=== PATIENT | female | born 1935 | race Caucasian/White ===

== ENCOUNTER → 2016-11-13 | Outpatient (CLI) | payer MEDICARE ==
[2016-11-13 12:51] LABS: MEAN CORPUSCULAR HEMOGLOBIN 32.1 pg (27.0-33.0); MEAN CORPUSCULAR HGB CONC 33.3 g/dl (32.0-36.5); MEAN CORPUSCULAR VOLUME 96.3 fl (80.0-96.0); RED CELL DISTRIBUTION WIDTH 13.1 % (11.5-14.5)
[2016-11-13 13:41] LABS: ALBUMIN 3.1 GM/DL (3.2-5.2); ALBUMIN/GLOBULIN RATIO 0.91 (1.00-1.93); ALKALINE PHOSPHATASE 71 U/L (45-117); ALT/SGPT 13 U/L (12-78); ANION GAP 7 MEQ/L (8-16); AST/SGOT 11 U/L (15-37); BILIRUBIN,TOTAL 0.6 MG/DL (0.2-1.0); BLOOD UREA NITROGEN 13 MG/DL (7-18); CALCIUM LEVEL 9.1 MG/DL (8.8-10.2); CARBON DIOXIDE LEVEL 27 MEQ/L (21-32); CHLORIDE LEVEL 104 MEQ/L (98-107); CHOLESTEROL LEVEL 177 MG/DL (<200); CREATININE FOR GFR 0.72 MG/DL (0.55-1.02); GLOMERULAR FILTRATION RATE > 60.0 (>32); GLUCOSE, FASTING 165 MG/DL (83-110); POTASSIUM SERUM 4.7 MEQ/L (3.5-5.1); SODIUM LEVEL 138 MEQ/L (136-145); TOTAL PROTEIN 6.5 GM/DL (6.4-8.2); TRIGLYCERIDES LEVEL 69 MG/DL (<150)
== END ==
LOC: M WUC 08:58
PROVIDERS: ATTEND Family Medicine
DX: I10 Essential (primary) hypertension (principal)

== ENCOUNTER 2017-07-18 13:37 | Inpatient (IN) | payer MEDICARE ==
[2017-07-18 14:45] LABS: BASO % 0.1 % (0.0-1.0); EOS % 0.1 % (0.0-3.0); HEMATOCRIT 35.6 % (36.0-47.0); HEMOGLOBIN 11.8 g/dl (12.0-16.0); IMMATURE GRANULOCYTE % 0.8 % (0-3.0); LYMPH # 1.2 10^3/uL (1.5-4.5); LYMPH % 11.6 % (24.0-44.0); MEAN CORPUSCULAR HEMOGLOBIN 30.8 pg (27.0-33.0); MEAN CORPUSCULAR HGB CONC 33.1 g/dl (32.0-36.5); MONO # 0.7 10^3/uL (0.0-0.8); NEUTROPHILS % 80.4 % (36.0-66.0); PLATELET COUNT, AUTOMATED 300 10^3/uL (150-450); RED BLOOD COUNT 3.83 10^6/uL (4.00-5.40); RED CELL DISTRIBUTION WIDTH 12.7 % (11.5-14.5)
[2017-07-18 15:10] LABS: ANION GAP 9 MEQ/L (8-16); BLOOD UREA NITROGEN 22 MG/DL (7-18); CALCIUM LEVEL 8.1 MG/DL (8.8-10.2); CARBON DIOXIDE LEVEL 28 MEQ/L (21-32); CHLORIDE LEVEL 97 MEQ/L (98-107); CREATININE FOR GFR 0.84 MG/DL (0.55-1.30); GLOMERULAR FILTRATION RATE > 60.0 (>32); GLUCOSE, FASTING 381 MG/DL (70-100); NT-PRO BNP 17693 PG/ML (<450); POTASSIUM SERUM 4.8 MEQ/L (3.5-5.1); SODIUM LEVEL 134 MEQ/L (136-145)
[2017-07-18 15:20] LABS: INFLUENZA A AMPLIFICATION POSITIVE (NEGATIVE); INFLUENZA B AMPLIFICATION NEGATIVE (NEGATIVE)
[2017-07-18] MEDS: FUROSEMIDE 40 MG/4 ML VIAL (J1940) IV (16:30)
[2017-07-18] MEDS: NEOSPORIN OINT 0.9 GM PKT (FLOOR STOCK) TOP (16:45)
[2017-07-18] MEDS ORDERED: GLUCOSE 4 GM CHEW TABLET PO (17:30)
[2017-07-18] MEDS: HumaLOG INSULIN (NovoLOG) PER UNIT SC ×2 (17:30→21:00)
[2017-07-18] MEDS ORDERED: DEXTROSE 50% 50 ML SYRINGE IV (17:30)
[2017-07-18] MEDS ORDERED: GLUCAGON FOR INJ 1 MG VIAL (J1610) SC (17:30)
[2017-07-18 18:50] LABS: BEDSIDE GLUCOSE 336 MG/DL (83-110)
[2017-07-18 20:47] LABS: BEDSIDE GLUCOSE 225 MG/DL (83-110)
[2017-07-18 21:27] LABS: ESTIMATED AVERAGE GLUCOSE 212 MG/DL (60-110)
[2017-07-18 21:28] LABS: THYROID STIMULATING HORMONE 0.671 uIU/ML (0.358-3.740)
[2017-07-18] MEDS: HEPARIN SOD (PORCINE) 5000 UNITS/ML VIAL SC (21:59)
[2017-07-18] MEDS: METOPROLOL TART 25 MG TABLET PO (21:59)
[2017-07-18] MEDS: guaiFENesin 200 MG TAB PO (23:54)
[2017-07-19] MEDS ORDERED: SLF 3 ML SYR IV (01:30)
[2017-07-19 05:11] LABS: HEMATOCRIT 34.4 % (36.0-47.0); HEMOGLOBIN 11.5 g/dl (12.0-16.0); MEAN CORPUSCULAR HEMOGLOBIN 30.7 pg (27.0-33.0); MEAN CORPUSCULAR HGB CONC 33.4 g/dl (32.0-36.5); MEAN CORPUSCULAR VOLUME 91.7 fl (80.0-96.0); PLATELET COUNT, AUTOMATED 307 10^3/uL (150-450); RED BLOOD COUNT 3.75 10^6/uL (4.00-5.40); RED CELL DISTRIBUTION WIDTH 12.6 % (11.5-14.5); WHITE BLOOD COUNT 13.2 10^3/uL (4.0-10.0)
[2017-07-19 05:35] LABS: ANION GAP 11 MEQ/L (8-16); BLOOD UREA NITROGEN 20 MG/DL (7-18); CALCIUM LEVEL 8.3 MG/DL (8.8-10.2); CARBON DIOXIDE LEVEL 28 MEQ/L (21-32); CHLORIDE LEVEL 97 MEQ/L (98-107); CREATININE FOR GFR 0.58 MG/DL (0.55-1.30); GLOMERULAR FILTRATION RATE > 60.0 (>32); GLUCOSE, FASTING 167 MG/DL (70-100); MAGNESIUM LEVEL 1.7 MG/DL (1.8-2.4); POTASSIUM SERUM 4.1 MEQ/L (3.5-5.1); SODIUM LEVEL 136 MEQ/L (136-145)
[2017-07-19] MEDS: HEPARIN SOD (PORCINE) 5000 UNITS/ML VIAL SC ×3 (06:29→21:25)
[2017-07-19] MEDS: SLF 3 ML SYR IV ×3 (06:30→21:26)
[2017-07-19] MEDS: HumaLOG INSULIN (NovoLOG) PER UNIT SC ×4 (07:46→21:00)
[2017-07-19] MEDS: ATORVASTATIN 10 MG TAB PO (07:47)
[2017-07-19] MEDS: METOPROLOL TART 25 MG TABLET PO ×2 (07:49→21:25)
[2017-07-19] MEDS: LOSARTAN 50 MG TAB PO (07:49)
[2017-07-19] MEDS ORDERED: FUROSEMIDE 40 MG TAB PO (09:00)
[2017-07-19] MEDS ORDERED: POTASSIUM CHLORIDE 10 MEQ SR TABLET PO (09:00)
[2017-07-19] MEDS: MAG SULF 1GM/100ML (MAG RUN) 1 GM in APPROPRIATE DILUENT 1 EA IV (09:18)
[2017-07-19] MEDS: ASPIRIN 325 MG TAB PO (09:18)
[2017-07-19 11:52] LABS: BEDSIDE GLUCOSE 226 MG/DL (83-110)
[2017-07-19 17:02] LABS: BEDSIDE GLUCOSE 215 MG/DL (83-110)
[2017-07-19] MEDS: guaiFENesin 200 MG TAB PO (17:32)
[2017-07-19] MEDS: BENZONATATE 100 MG CAP PO (21:26)
[2017-07-19 21:44] LABS: BEDSIDE GLUCOSE 178 MG/DL (83-110)
[2017-07-20 06:03] LABS: HEMATOCRIT 34.5 % (36.0-47.0); HEMOGLOBIN 11.5 g/dl (12.0-16.0); MEAN CORPUSCULAR HEMOGLOBIN 30.8 pg (27.0-33.0); MEAN CORPUSCULAR HGB CONC 33.3 g/dl (32.0-36.5); MEAN CORPUSCULAR VOLUME 92.5 fl (80.0-96.0); PLATELET COUNT, AUTOMATED 331 10^3/uL (150-450); RED BLOOD COUNT 3.73 10^6/uL (4.00-5.40); RED CELL DISTRIBUTION WIDTH 12.6 % (11.5-14.5); WHITE BLOOD COUNT 13.3 10^3/uL (4.0-10.0)
[2017-07-20 06:16] LABS: ANION GAP 6 MEQ/L (8-16); BLOOD UREA NITROGEN 27 MG/DL (7-18); CALCIUM LEVEL 8.3 MG/DL (8.8-10.2); CARBON DIOXIDE LEVEL 32 MEQ/L (21-32); CHLORIDE LEVEL 96 MEQ/L (98-107); CREATININE FOR GFR 0.75 MG/DL (0.55-1.30); GLOMERULAR FILTRATION RATE > 60.0 (>32); GLUCOSE, FASTING 173 MG/DL (70-100); MAGNESIUM LEVEL 2.5 MG/DL (1.8-2.4); SODIUM LEVEL 134 MEQ/L (136-145)
[2017-07-20 06:17] LABS: POTASSIUM SERUM 5.3 MEQ/L (3.5-5.1)
[2017-07-20] MEDS: HEPARIN SOD (PORCINE) 5000 UNITS/ML VIAL SC ×3 (06:49→21:52)
[2017-07-20] MEDS: SLF 3 ML SYR IV ×3 (06:50→21:51)
[2017-07-20] MEDS: ALBUTEROL SULFATE 2.5 MG/0.5 ML INH NEB SOLN NEB ×3 (08:00→18:16)
[2017-07-20] MEDS: HumaLOG INSULIN (NovoLOG) PER UNIT SC ×4 (08:17→21:00)
[2017-07-20] MEDS: ASPIRIN 325 MG TAB PO (08:17)
[2017-07-20] MEDS: METOPROLOL TART 50 MG TAB PO ×2 (08:18→21:52)
[2017-07-20] MEDS: ATORVASTATIN 10 MG TAB PO (08:18)
[2017-07-20] MEDS: FUROSEMIDE 40 MG TAB PO (08:27)
[2017-07-20 11:50] LABS: BEDSIDE GLUCOSE 287 MG/DL (83-110)
[2017-07-20] MEDS: guaiFENesin 200 MG TAB PO (17:46)
[2017-07-20] MEDS: BENZONATATE 100 MG CAP PO (17:46)
[2017-07-20 18:43] LABS: BEDSIDE GLUCOSE 215 MG/DL (83-110)
[2017-07-20 21:47] LABS: BEDSIDE GLUCOSE 213 MG/DL (83-110)
[2017-07-21] MEDS: ALBUTEROL SULFATE 2.5 MG/0.5 ML INH NEB SOLN NEB ×2 (01:20→07:31)
[2017-07-21] MEDS: guaiFENesin 200 MG TAB PO ×3 (04:10→21:56)
[2017-07-21] MEDS: BENZONATATE 100 MG CAP PO ×3 (04:10→21:57)
[2017-07-21 06:10] LABS: HEMOGLOBIN 11.4 g/dl (12.0-16.0); MEAN CORPUSCULAR HEMOGLOBIN 31.1 pg (27.0-33.0); MEAN CORPUSCULAR HGB CONC 33.5 g/dl (32.0-36.5); MEAN CORPUSCULAR VOLUME 92.6 fl (80.0-96.0); PLATELET COUNT, AUTOMATED 317 10^3/uL (150-450); RED BLOOD COUNT 3.67 10^6/uL (4.00-5.40); RED CELL DISTRIBUTION WIDTH 12.9 % (11.5-14.5); WHITE BLOOD COUNT 12.9 10^3/uL (4.0-10.0)
[2017-07-21] MEDS: HEPARIN SOD (PORCINE) 5000 UNITS/ML VIAL SC ×3 (06:24→21:36)
[2017-07-21] MEDS: SLF 3 ML SYR IV ×3 (06:24→21:36)
[2017-07-21 06:25] LABS: ANION GAP 9 MEQ/L (8-16); BLOOD UREA NITROGEN 27 MG/DL (7-18); CARBON DIOXIDE LEVEL 30 MEQ/L (21-32); CHLORIDE LEVEL 96 MEQ/L (98-107); CREATININE FOR GFR 0.69 MG/DL (0.55-1.30); GLOMERULAR FILTRATION RATE > 60.0 (>32); GLUCOSE, FASTING 186 MG/DL (70-100); MAGNESIUM LEVEL 2.1 MG/DL (1.8-2.4); POTASSIUM SERUM 4.2 MEQ/L (3.5-5.1); SODIUM LEVEL 135 MEQ/L (136-145)
[2017-07-21] MEDS: ASPIRIN 325 MG TAB PO (09:29)
[2017-07-21] MEDS: METOPROLOL TART 50 MG TAB PO ×2 (09:30→20:56)
[2017-07-21] MEDS: HumaLOG INSULIN (NovoLOG) PER UNIT SC ×4 (09:32→20:48)
[2017-07-21] MEDS: ATORVASTATIN 10 MG TAB PO (09:33)
[2017-07-21] MEDS: FUROSEMIDE 40 MG TAB PO (09:33)
[2017-07-21 12:07] LABS: BEDSIDE GLUCOSE 242 MG/DL (83-110)
[2017-07-21] MEDS: IPRATROPIUM 0.5MG/ALBUTEROL 2.5MG INH SOL UD 3ML (DUONEB)(J7620) NEB ×2 (14:00→20:53)
[2017-07-21] MEDS ORDERED: BISACODYL 10 MG SUPP PR (14:45)
[2017-07-21] MEDS: BISACODYL 5 MG TAB PO (15:30)
[2017-07-21 16:42] LABS: BEDSIDE GLUCOSE 201 MG/DL (83-110)
[2017-07-21] MEDS: BUDESONIDE 0.5 MG/2 ML INHALATION SUSPENSION INH (20:52)
[2017-07-21] MEDS: LEVEMIR (INSULIN DETEMIR) 1 UNITS/0.01ML SC (20:55)
[2017-07-21] MEDS: SENOKOT S TAB PO (20:55)
[2017-07-21 20:56] LABS: BEDSIDE GLUCOSE 133 MG/DL (83-110)
[2017-07-22] MEDS: IPRATROPIUM 0.5MG/ALBUTEROL 2.5MG INH SOL UD 3ML (DUONEB)(J7620) NEB ×2 (02:00→05:53)
[2017-07-22] MEDS: SLF 3 ML SYR IV (05:42)
[2017-07-22] MEDS: HEPARIN SOD (PORCINE) 5000 UNITS/ML VIAL SC (05:42)
[2017-07-22] MEDS: BUDESONIDE 0.5 MG/2 ML INHALATION SUSPENSION INH (05:53)
[2017-07-22 07:14] LABS: HEMATOCRIT 34.5 % (36.0-47.0); HEMOGLOBIN 11.7 g/dl (12.0-16.0); MEAN CORPUSCULAR HEMOGLOBIN 31.2 pg (27.0-33.0); MEAN CORPUSCULAR HGB CONC 33.9 g/dl (32.0-36.5); PLATELET COUNT, AUTOMATED 370 10^3/uL (150-450); RED BLOOD COUNT 3.75 10^6/uL (4.00-5.40); RED CELL DISTRIBUTION WIDTH 12.8 % (11.5-14.5); WHITE BLOOD COUNT 12.7 10^3/uL (4.0-10.0)
[2017-07-22] MEDS: HumaLOG INSULIN (NovoLOG) PER UNIT SC ×2 (07:30→11:44)
[2017-07-22 07:38] LABS: ANION GAP 8 MEQ/L (8-16); BLOOD UREA NITROGEN 19 MG/DL (7-18); CALCIUM LEVEL 8.3 MG/DL (8.8-10.2); CARBON DIOXIDE LEVEL 29 MEQ/L (21-32); CHLORIDE LEVEL 100 MEQ/L (98-107); CREATININE FOR GFR 0.77 MG/DL (0.55-1.30); GLOMERULAR FILTRATION RATE > 60.0 (>32); GLUCOSE, FASTING 88 MG/DL (70-100); POTASSIUM SERUM 3.9 MEQ/L (3.5-5.1); SODIUM LEVEL 137 MEQ/L (136-145)
[2017-07-22] MEDS: FUROSEMIDE 40 MG TAB PO (09:46)
[2017-07-22] MEDS: SENOKOT S TAB PO (09:46)
[2017-07-22] MEDS: ASPIRIN 325 MG TAB PO (09:46)
[2017-07-22] MEDS: ATORVASTATIN 10 MG TAB PO (09:46)
[2017-07-22] MEDS: BISACODYL 5 MG TAB PO (09:46)
[2017-07-22] MEDS: METOPROLOL TART 50 MG TAB PO (09:47)
[2017-07-22 11:44] LABS: BEDSIDE GLUCOSE 199 MG/DL (83-110)
== END 2017-07-22 13:15 | DRG 195 ==
LOC: M MS5PR 07-21 21:15 → M ED 13:37 → M ED INP 17:22 → M PCU 19:10
DX: J10.1 Influenza due to other identified influenza virus with other respiratory manifestations (principal); I10 Essential (primary) hypertension; E11.9 Type 2 diabetes mellitus without complications; F32.9 Major depressive disorder, single episode, unspecified; Z85.41 Personal history of malignant neoplasm of cervix uteri; Z96.651 Presence of right artificial knee joint; R29.6 Repeated falls; I48.91 Unspecified atrial fibrillation; S00.83XA Contusion of other part of head, initial encounter; Y92.009 Unspecified place in unspecified non-institutional (private) residence as the place of occurrence of the external cause; Z79.899 Other long term (current) drug therapy; H54.8 Legal blindness, as defined in USA; M50.30 Other cervical disc degeneration, unspecified cervical region; J98.01 Acute bronchospasm; Z79.82 Long term (current) use of aspirin

== ENCOUNTER → 2017-07-23 | Outpatient (REF) | payer MEDICARE, OTHER | DX: R05 Cough (principal) | CPT/HCPCS: 87186 ==

== ENCOUNTER → 2017-08-03 | Outpatient (REF) | payer MEDICARE, OTHER ==
[2017-08-03 10:30] LABS: HEMATOCRIT 32.2 % (36.0-47.0); HEMOGLOBIN 10.6 g/dl (12.0-16.0); MEAN CORPUSCULAR HEMOGLOBIN 31.4 pg (27.0-33.0); MEAN CORPUSCULAR HGB CONC 32.9 g/dl (32.0-36.5); MEAN CORPUSCULAR VOLUME 95.3 fl (80.0-96.0); PLATELET COUNT, AUTOMATED 289 10^3/uL (150-450); RED BLOOD COUNT 3.38 10^6/uL (4.00-5.40); WHITE BLOOD COUNT 6.2 10^3/uL (4.0-10.0)
== END ==
DX: I10 Essential (primary) hypertension (principal)
CPT/HCPCS: 85027

== ENCOUNTER → 2017-08-09 | Outpatient (REF) | DX: M17.12 Unilateral primary osteoarthritis, left knee (principal) ==

== ENCOUNTER → 2017-08-13 | Outpatient (REF) | payer MEDICARE, OTHER ==
[2017-08-13 14:44] LABS: HEMATOCRIT 30.6 % (36.0-47.0); HEMOGLOBIN 9.9 g/dl (12.0-16.0); MEAN CORPUSCULAR HEMOGLOBIN 30.9 pg (27.0-33.0); MEAN CORPUSCULAR HGB CONC 32.4 g/dl (32.0-36.5); MEAN CORPUSCULAR VOLUME 95.6 fl (80.0-96.0); PLATELET COUNT, AUTOMATED 332 10^3/uL (150-450); RED CELL DISTRIBUTION WIDTH 14.3 % (11.5-14.5); WHITE BLOOD COUNT 10.4 10^3/uL (4.0-10.0)
[2017-08-13 15:07] LABS: ANION GAP 8 MEQ/L (8-16); BLOOD UREA NITROGEN 31 MG/DL (7-18); CALCIUM LEVEL 8.2 MG/DL (8.8-10.2); CARBON DIOXIDE LEVEL 29 MEQ/L (21-32); CHLORIDE LEVEL 95 MEQ/L (98-107); CREATININE FOR GFR 0.93 MG/DL (0.55-1.30); GLOMERULAR FILTRATION RATE > 60.0 (>32); GLUCOSE, FASTING 280 MG/DL (70-100); NT-PRO BNP 7636 PG/ML (<450); POTASSIUM SERUM 4.7 MEQ/L (3.5-5.1); SODIUM LEVEL 132 MEQ/L (136-145)
== END ==
DX: I50.9 Heart failure, unspecified (principal)
CPT/HCPCS: 80048

== ENCOUNTER → 2017-08-17 | Outpatient (REF) ==
[2017-08-17 10:31] LABS: ANION GAP 8 MEQ/L (8-16); BLOOD UREA NITROGEN 17 MG/DL (7-18); CALCIUM LEVEL 8.3 MG/DL (8.8-10.2); CARBON DIOXIDE LEVEL 32 MEQ/L (21-32); CHLORIDE LEVEL 98 MEQ/L (98-107); CREATININE FOR GFR 0.74 MG/DL (0.55-1.30); GLOMERULAR FILTRATION RATE > 60.0 (>32); GLUCOSE, FASTING 209 MG/DL (70-100); SODIUM LEVEL 138 MEQ/L (136-145)
[2017-08-17 10:41] LABS: POTASSIUM SERUM 5.6 MEQ/L (3.5-5.1)
== END ==
DX: R60.0 Localized edema (principal)

== ENCOUNTER → 2017-08-18 | Outpatient (REF) ==
[2017-08-18 13:01] LABS: POTASSIUM SERUM 5.4 MEQ/L (3.5-5.1)
== END ==
DX: E87.5 Hyperkalemia (principal)

== ENCOUNTER → 2017-08-20 | Outpatient (REF) | payer MEDICARE, OTHER ==
[2017-08-20 09:28] LABS: POTASSIUM SERUM 4.4 MEQ/L (3.5-5.1)
== END ==
DX: E87.5 Hyperkalemia (principal)

== ENCOUNTER → 2017-09-21 | Outpatient (REF) ==
[2017-09-21 11:10] LABS: HEMATOCRIT 30.4 % (36.0-47.0); HEMOGLOBIN 9.6 g/dl (12.0-15.5); MEAN CORPUSCULAR HEMOGLOBIN 29.2 pg (27.0-33.0); MEAN CORPUSCULAR HGB CONC 31.6 g/dl (32.0-36.5); MEAN CORPUSCULAR VOLUME 92.4 fl (80.0-96.0); PLATELET COUNT, AUTOMATED 410 10^3/uL (150-450); RED BLOOD COUNT 3.29 10^6/uL (4.00-5.40); WHITE BLOOD COUNT 7.9 10^3/uL (4.0-10.0)
[2017-09-21 11:38] LABS: ANION GAP 5 MEQ/L (8-16); BLOOD UREA NITROGEN 15 MG/DL (7-18); CALCIUM LEVEL 8.3 MG/DL (8.8-10.2); CARBON DIOXIDE LEVEL 33 MEQ/L (21-32); CHLORIDE LEVEL 96 MEQ/L (98-107); CREATININE FOR GFR 0.75 MG/DL (0.55-1.30); GLOMERULAR FILTRATION RATE > 60.0 (>32); GLUCOSE, FASTING 256 MG/DL (70-100); MAGNESIUM LEVEL 1.7 MG/DL (1.8-2.4); POTASSIUM SERUM 4.9 MEQ/L (3.5-5.1); SODIUM LEVEL 134 MEQ/L (136-145)
== END ==
DX: I50.9 Heart failure, unspecified (principal)

== ENCOUNTER → 2017-09-23 | Outpatient (REF) ==
[2017-09-23 13:47] LABS: HEMATOCRIT 31.6 % (36.0-47.0); HEMOGLOBIN 10.1 g/dl (12.0-15.5); MEAN CORPUSCULAR HEMOGLOBIN 29.4 pg (27.0-33.0); MEAN CORPUSCULAR VOLUME 92.1 fl (80.0-96.0); PLATELET COUNT, AUTOMATED 414 10^3/uL (150-450); RED BLOOD COUNT 3.43 10^6/uL (4.00-5.40); RED CELL DISTRIBUTION WIDTH 14.8 % (11.5-14.5); WHITE BLOOD COUNT 7.3 10^3/uL (4.0-10.0)
[2017-09-23 14:33] LABS: ANION GAP 9 MEQ/L (8-16); BLOOD UREA NITROGEN 17 MG/DL (7-18); CALCIUM LEVEL 8.7 MG/DL (8.8-10.2); CARBON DIOXIDE LEVEL 31 MEQ/L (21-32); CHLORIDE LEVEL 96 MEQ/L (98-107); CREATININE FOR GFR 0.85 MG/DL (0.55-1.30); GLOMERULAR FILTRATION RATE > 60.0 (>32); GLUCOSE, FASTING 205 MG/DL (70-100); MAGNESIUM LEVEL 1.7 MG/DL (1.8-2.4); SODIUM LEVEL 136 MEQ/L (136-145)
== END ==
DX: I50.9 Heart failure, unspecified (principal)

== ENCOUNTER → 2017-09-28 | Outpatient (REF) ==
[2017-09-28 10:45] LABS: HEMATOCRIT 31.6 % (36.0-47.0); HEMOGLOBIN 10.1 g/dl (12.0-15.5); MEAN CORPUSCULAR HEMOGLOBIN 29.4 pg (27.0-33.0); MEAN CORPUSCULAR VOLUME 91.9 fl (80.0-96.0); PLATELET COUNT, AUTOMATED 410 10^3/uL (150-450); RED BLOOD COUNT 3.44 10^6/uL (4.00-5.40); RED CELL DISTRIBUTION WIDTH 15.1 % (11.5-14.5); WHITE BLOOD COUNT 11.9 10^3/uL (4.0-10.0)
[2017-09-28 11:28] LABS: ANION GAP 10 MEQ/L (8-16); BLOOD UREA NITROGEN 21 MG/DL (7-18); CALCIUM LEVEL 8.5 MG/DL (8.8-10.2); CARBON DIOXIDE LEVEL 31 MEQ/L (21-32); CHLORIDE LEVEL 90 MEQ/L (98-107); CREATININE FOR GFR 0.86 MG/DL (0.55-1.30); GLOMERULAR FILTRATION RATE > 60.0 (>32); GLUCOSE, FASTING 353 MG/DL (70-100); MAGNESIUM LEVEL 1.7 MG/DL (1.8-2.4); POTASSIUM SERUM 4.5 MEQ/L (3.5-5.1); SODIUM LEVEL 131 MEQ/L (136-145)
== END ==
DX: I50.9 Heart failure, unspecified (principal)

== ENCOUNTER → 2017-09-29 | Outpatient (REF) ==
[2017-09-29 17:24] LABS: ANION GAP 9 MEQ/L (8-16); BLOOD UREA NITROGEN 25 MG/DL (7-18); CALCIUM LEVEL 8.2 MG/DL (8.8-10.2); CARBON DIOXIDE LEVEL 32 MEQ/L (21-32); CHLORIDE LEVEL 90 MEQ/L (98-107); CREATININE FOR GFR 0.89 MG/DL (0.55-1.30); GLOMERULAR FILTRATION RATE > 60.0 (>32); GLUCOSE, FASTING 320 MG/DL (70-100); POTASSIUM SERUM 4.7 MEQ/L (3.5-5.1); SODIUM LEVEL 131 MEQ/L (136-145)
[2017-09-29 17:44] LABS: HEMATOCRIT 31.3 % (36.0-47.0); HEMOGLOBIN 9.9 g/dl (12.0-15.5); MEAN CORPUSCULAR HEMOGLOBIN 28.4 pg (27.0-33.0); MEAN CORPUSCULAR HGB CONC 31.6 g/dl (32.0-36.5); MEAN CORPUSCULAR VOLUME 89.9 fl (80.0-96.0); PLATELET COUNT, AUTOMATED 402 10^3/uL (150-450); RED BLOOD COUNT 3.48 10^6/uL (4.00-5.40); WHITE BLOOD COUNT 9.5 10^3/uL (4.0-10.0)
[2017-09-29 18:37] LABS: ERYTHROCYTE SEDIMENTATION RATE 87 mm/hr (0-30)
== END ==
DX: I50.9 Heart failure, unspecified (principal)

== ENCOUNTER → 2017-10-01 | Outpatient (REF) | payer MEDICARE, OTHER ==
[2017-10-01 09:42] LABS: HEMATOCRIT 32.4 % (36.0-47.0); HEMOGLOBIN 10.2 g/dl (12.0-15.5); MEAN CORPUSCULAR HEMOGLOBIN 28.6 pg (27.0-33.0); MEAN CORPUSCULAR HGB CONC 31.5 g/dl (32.0-36.5); MEAN CORPUSCULAR VOLUME 90.8 fl (80.0-96.0); PLATELET COUNT, AUTOMATED 424 10^3/uL (150-450); RED BLOOD COUNT 3.57 10^6/uL (4.00-5.40); RED CELL DISTRIBUTION WIDTH 14.9 % (11.5-14.5); WHITE BLOOD COUNT 10.3 10^3/uL (4.0-10.0)
[2017-10-01 10:57] LABS: ERYTHROCYTE SEDIMENTATION RATE 95 mm/hr (0-30)
== END ==
DX: L03.90 Cellulitis, unspecified (principal)
CPT/HCPCS: 86140

== ENCOUNTER → 2017-11-25 | Outpatient (REF) | payer MEDICARE | LOC: M LAB REF 17:47 | DX: E11.621 Type 2 diabetes mellitus with foot ulcer (principal) | CPT/HCPCS: 87186 ==

== ENCOUNTER → 2017-12-02 | Outpatient (REF) | payer MEDICARE | LOC: M LAB REF 18:25 | DX: I96 Gangrene, not elsewhere classified (principal); M86.171 Other acute osteomyelitis, right ankle and foot; E11.621 Type 2 diabetes mellitus with foot ulcer; L97.514 Non-pressure chronic ulcer of other part of right foot with necrosis of bone; L97.512 Non-pressure chronic ulcer of other part of right foot with fat layer exposed | CPT/HCPCS: 88305 ==

== ENCOUNTER → 2017-12-03 | Outpatient (REF) ==
[2017-12-03 13:45] LABS: HEMATOCRIT 30.9 % (36.0-47.0); HEMOGLOBIN 9.7 g/dl (12.0-15.5); MEAN CORPUSCULAR HEMOGLOBIN 28.4 pg (27.0-33.0); MEAN CORPUSCULAR HGB CONC 31.4 g/dl (32.0-36.5); MEAN CORPUSCULAR VOLUME 90.6 fl (80.0-96.0); PLATELET COUNT, AUTOMATED 399 10^3/uL (150-450); RED BLOOD COUNT 3.41 10^6/uL (4.00-5.40); RED CELL DISTRIBUTION WIDTH 15.4 % (11.5-14.5); WHITE BLOOD COUNT 11.4 10^3/uL (4.0-10.0)
[2017-12-03 14:03] LABS: ANION GAP 10 MEQ/L (8-16); BLOOD UREA NITROGEN 26 MG/DL (7-18); CALCIUM LEVEL 8.6 MG/DL (8.8-10.2); CARBON DIOXIDE LEVEL 31 MEQ/L (21-32); CHLORIDE LEVEL 95 MEQ/L (98-107); GLOMERULAR FILTRATION RATE > 60.0 (>32); GLUCOSE, FASTING 265 MG/DL (70-100); POTASSIUM SERUM 5.1 MEQ/L (3.5-5.1); SODIUM LEVEL 136 MEQ/L (136-145)
== END ==
DX: L03.115 Cellulitis of right lower limb (principal)

== ENCOUNTER → 2017-12-06 | Outpatient (REF) ==
[2017-12-06 13:37] LABS: HEMATOCRIT 30.8 % (36.0-47.0); HEMOGLOBIN 9.8 g/dl (12.0-15.5); MEAN CORPUSCULAR HEMOGLOBIN 27.8 pg (27.0-33.0); MEAN CORPUSCULAR HGB CONC 31.8 g/dl (32.0-36.5); MEAN CORPUSCULAR VOLUME 87.3 fl (80.0-96.0); PLATELET COUNT, AUTOMATED 397 10^3/uL (150-450); RED BLOOD COUNT 3.53 10^6/uL (4.00-5.40); RED CELL DISTRIBUTION WIDTH 15.5 % (11.5-14.5); WHITE BLOOD COUNT 13.4 10^3/uL (4.0-10.0)
[2017-12-06 13:59] LABS: ANION GAP 10 MEQ/L (8-16); BLOOD UREA NITROGEN 30 MG/DL (7-18); CALCIUM LEVEL 8.8 MG/DL (8.8-10.2); CARBON DIOXIDE LEVEL 29 MEQ/L (21-32); CHLORIDE LEVEL 94 MEQ/L (98-107); CREATININE FOR GFR 0.84 MG/DL (0.55-1.30); GLOMERULAR FILTRATION RATE > 60.0 (>32); GLUCOSE, FASTING 225 MG/DL (70-100); SODIUM LEVEL 133 MEQ/L (136-145)
[2017-12-06 14:02] LABS: POTASSIUM SERUM 5.4 MEQ/L (3.5-5.1)
== END ==
DX: L03.115 Cellulitis of right lower limb (principal)

== ENCOUNTER → 2017-12-09 | Outpatient (REF) ==
[2017-12-09 11:05] LABS: HEMATOCRIT 30.5 % (36.0-47.0); HEMOGLOBIN 9.7 g/dl (12.0-15.5); MEAN CORPUSCULAR HGB CONC 31.8 g/dl (32.0-36.5); MEAN CORPUSCULAR VOLUME 87.9 fl (80.0-96.0); PLATELET COUNT, AUTOMATED 426 10^3/uL (150-450); RED BLOOD COUNT 3.47 10^6/uL (4.00-5.40); RED CELL DISTRIBUTION WIDTH 15.1 % (11.5-14.5); WHITE BLOOD COUNT 9.8 10^3/uL (4.0-10.0)
[2017-12-09 11:32] LABS: ANION GAP 12 MEQ/L (8-16); BLOOD UREA NITROGEN 29 MG/DL (7-18); CALCIUM LEVEL 8.7 MG/DL (8.8-10.2); CARBON DIOXIDE LEVEL 31 MEQ/L (21-32); CHLORIDE LEVEL 93 MEQ/L (98-107); CREATININE FOR GFR 0.85 MG/DL (0.55-1.30); GLOMERULAR FILTRATION RATE > 60.0 (>32); GLUCOSE, FASTING 226 MG/DL (70-100); POTASSIUM SERUM 5.1 MEQ/L (3.5-5.1); SODIUM LEVEL 136 MEQ/L (136-145)
== END ==
DX: E87.5 Hyperkalemia (principal)

== ENCOUNTER → 2017-12-15 | Outpatient (CLI) | payer MEDICARE | LOC: M RAD 08:25 | DX: L97.512 Non-pressure chronic ulcer of other part of right foot with fat layer exposed (principal); L97.312 Non-pressure chronic ulcer of right ankle with fat layer exposed; R60.0 Localized edema; E87.6 Hypokalemia; I70.201 Unspecified atherosclerosis of native arteries of extremities, right leg; M79.671 Pain in right foot; M79.661 Pain in right lower leg; L03.116 Cellulitis of left lower limb | CPT/HCPCS: 93926 ==

== ENCOUNTER → 2018-02-16 | Outpatient (CLI) | payer MEDICARE, MEDICAID ==
[~2018-02-16] MED LIST: ISOVUE-300 61% 50ML VIAL (Q9967) As Ordered; LIDOCAINE 2% MDV 20 ML VIAL As Ordered
== END | disposition home or self-care (01) ==
LOC: M IRPRO 06:37
DX: T87.89 Other complications of amputation stump (principal); E11.9 Type 2 diabetes mellitus without complications; I10 Essential (primary) hypertension; J44.9 Chronic obstructive pulmonary disease, unspecified; I25.10 Atherosclerotic heart disease of native coronary artery without angina pectoris; I48.91 Unspecified atrial fibrillation; Z87.891 Personal history of nicotine dependence; Z89.421 Acquired absence of other right toe(s)
CPT/HCPCS: 36247

== ENCOUNTER → 2018-04-05 | Outpatient (REF) | payer MEDICARE ==
[2018-04-05 10:36] LABS: BASO % 0.5 % (0.0-1.0); EOS # 0.2 10^3/uL (0.0-0.50); EOS % 2.9 % (0.0-3.0); HEMATOCRIT 33.6 % (36.0-47.0); HEMOGLOBIN 11.1 g/dl (12.0-15.5); IMMATURE GRANULOCYTE % 0.3 % (0-3.0); LYMPH # 1.6 10^3/uL (1.5-4.5); LYMPH % 23.9 % (24.0-44.0); MEAN CORPUSCULAR HEMOGLOBIN 31.3 pg (27.0-33.0); MEAN CORPUSCULAR VOLUME 94.6 fl (80.0-96.0); MONO # 0.4 10^3/uL (0.0-0.8); MONO % 6.1 % (0.0-5.0); NEUTROPHILS # 4.3 10^3/uL (1.8-7.7); NEUTROPHILS % 66.3 % (36.0-66.0); PLATELET COUNT, AUTOMATED 234 10^3/uL (150-450); RED BLOOD COUNT 3.55 10^6/uL (4.00-5.40); RED CELL DISTRIBUTION WIDTH 14.3 % (11.5-14.5); WHITE BLOOD COUNT 6.5 10^3/uL (4.0-10.0)
[2018-04-05 11:14] LABS: ALBUMIN 3.1 GM/DL (3.2-5.2); ALBUMIN/GLOBULIN RATIO 0.84 (1.00-1.93); ALKALINE PHOSPHATASE 67 U/L (45-117); ALT/SGPT 15 U/L (12-78); ANION GAP 8 MEQ/L (8-16); AST/SGOT 14 U/L (7-37); BILIRUBIN,TOTAL 0.3 MG/DL (0.2-1.0); BLOOD UREA NITROGEN 31 MG/DL (7-18); CALCIUM LEVEL 8.9 MG/DL (8.8-10.2); CARBON DIOXIDE LEVEL 27 MEQ/L (21-32); CHLORIDE LEVEL 100 MEQ/L (98-107); CHOLESTEROL LEVEL 154 MG/DL (<200); CHOLESTEROL RISK RATIO 2.851 (<5); CREATININE FOR GFR 0.91 MG/DL (0.55-1.30); GLOMERULAR FILTRATION RATE > 60.0 (>32); GLUCOSE, FASTING 284 MG/DL (70-100); HDL CHOLESTEROL 54 MG/DL (>40); LDL CHOLESTEROL 74 MG/DL (<100); NON-HDL-C 100 MG/DL; POTASSIUM SERUM 4.6 MEQ/L (3.5-5.1); SODIUM LEVEL 135 MEQ/L (136-145); TOTAL PROTEIN 6.8 GM/DL (6.4-8.2); TRIGLYCERIDES LEVEL 132 MG/DL (<150)
[2018-04-05 11:41] LABS: ESTIMATED AVERAGE GLUCOSE 157 MG/DL (60-110); HEMOGLOBIN A1c 7.1 %
== END ==
DX: E11.9 Type 2 diabetes mellitus without complications (principal)
CPT/HCPCS: 80053

== ENCOUNTER → 2018-06-21 | Outpatient (REF) | payer MEDICARE, MEDICAID ==
[~2018-06-21] MED LIST changes: +ALB2.5NEB INH; +ASPI1TAB20 PO; +ATOR1TAB19 PO; +Acetaminophen Tab PO; +BENZ-18 PO; +BISA10SU PR; +BISAC5TA PO; +BUDE0.5S6 INH; +BUME1TAB27 PO; +DIOV80TA3 PO; +ELIQ5TAB PO; +FLUO20TA28 PO; +GUAI20TA PO; +IPRA0.00 INH; +IPRA0.00 NEB; -ISOVUE-300 61% 50ML VIAL (Q9967) As Ordered; +LASI40TA9 PO; -LIDOCAINE 2% MDV 20 ML VIAL As Ordered; +LOPR1TAB6 PO; +LOSA50TA88 PO; +MELO7.5T7 PO; +METF10004 PO; +METO50TA7 PO; +MILK120011 PO; +PATIENT COMMENT; +POTA1TAB21 PO; +SENN1TAB2 PO
[2018-06-21 10:08] LABS: BASO % 0.1 % (0.0-1.0); EOS # 0.2 10^3/uL (0.0-0.50); EOS % 3.3 % (0.0-3.0); HEMATOCRIT 32.1 % (36.0-47.0); HEMOGLOBIN 10.4 g/dl (12.0-15.5); LYMPH # 1.4 10^3/uL (1.5-4.5); LYMPH % 21.3 % (24.0-44.0); MEAN CORPUSCULAR HEMOGLOBIN 31.7 pg (27.0-33.0); MEAN CORPUSCULAR HGB CONC 32.4 g/dl (32.0-36.5); MEAN CORPUSCULAR VOLUME 97.9 fl (80.0-96.0); MONO # 0.4 10^3/uL (0.0-0.8); MONO % 6.6 % (0.0-5.0); NEUTROPHILS # 4.6 10^3/uL (1.8-7.7); NEUTROPHILS % 68.4 % (36.0-66.0); PLATELET COUNT, AUTOMATED 247 10^3/uL (150-450); RED BLOOD COUNT 3.28 10^6/uL (4.00-5.40); WHITE BLOOD COUNT 6.7 10^3/uL (4.0-10.0)
[2018-06-21 10:29] LABS: ALBUMIN 3.2 GM/DL (3.2-5.2); ALT/SGPT 15 U/L (12-78); BILIRUBIN,TOTAL 0.3 MG/DL (0.2-1.0); BLOOD UREA NITROGEN 32 MG/DL (7-18); CALCIUM LEVEL 8.9 MG/DL (8.8-10.2); CARBON DIOXIDE LEVEL 29 MEQ/L (21-32); CHLORIDE LEVEL 99 MEQ/L (98-107); CREATININE FOR GFR 0.82 MG/DL (0.55-1.30); GLOMERULAR FILTRATION RATE > 60.0 (>32); GLUCOSE, FASTING 228 MG/DL (70-100); POTASSIUM SERUM 4.4 MEQ/L (3.5-5.1); SODIUM LEVEL 139 MEQ/L (136-145); TOTAL PROTEIN 6.6 GM/DL (6.4-8.2)
[2018-06-21 12:03] LABS: HEMOGLOBIN A1c 7.1 %
== END ==
PROVIDERS: ATTEND Family Medicine
DX: I25.10 Atherosclerotic heart disease of native coronary artery without angina pectoris (principal); E11.9 Type 2 diabetes mellitus without complications

== ENCOUNTER → 2018-08-02 | Outpatient (REF) | payer MEDICARE, MEDICAID | LOC: M LAB REF 17:57 | PROVIDERS: ATTEND Surgery | DX: M86.171 Other acute osteomyelitis, right ankle and foot (principal); E11.621 Type 2 diabetes mellitus with foot ulcer ==

== ENCOUNTER → 2018-08-09 | Outpatient (REF) | payer MEDICARE, MEDICAID ==
[2018-08-09 11:24] LABS: BLOOD UREA NITROGEN 44 MG/DL (7-18); CALCIUM LEVEL 9.1 MG/DL (8.8-10.2); CARBON DIOXIDE LEVEL 28 MEQ/L (21-32); CHLORIDE LEVEL 99 MEQ/L (98-107); CREATININE FOR GFR 0.92 MG/DL (0.55-1.30); GLOMERULAR FILTRATION RATE > 60.0 (>32); GLUCOSE, FASTING 284 MG/DL (70-100); POTASSIUM SERUM 4.4 MEQ/L (3.5-5.1); SODIUM LEVEL 138 MEQ/L (136-145)
== END ==
PROVIDERS: ATTEND Family Medicine
DX: I50.9 Heart failure, unspecified (principal)

== ENCOUNTER → 2018-09-20 | Outpatient (REF) | payer MEDICARE, MEDICAID ==
[~2018-09-20] MED LIST changes: -SENN1TAB2 PO; +SENN1TAB40 PO
[2018-09-20 09:32] LABS: BASO % 0.4 % (0.0-1.0); EOS # 0.2 10^3/uL (0.0-0.50); EOS % 2.7 % (0.0-3.0); HEMATOCRIT 36.3 % (36.0-47.0); HEMOGLOBIN 11.7 g/dl (12.0-15.5); LYMPH # 2.1 10^3/uL (1.5-4.5); LYMPH % 26.4 % (24.0-44.0); MEAN CORPUSCULAR HEMOGLOBIN 31.5 pg (27.0-33.0); MEAN CORPUSCULAR HGB CONC 32.2 g/dl (32.0-36.5); MEAN CORPUSCULAR VOLUME 97.8 fl (80.0-96.0); MONO # 0.7 10^3/uL (0.0-0.8); MONO % 8.5 % (0.0-5.0); NEUTROPHILS % 61.6 % (36.0-66.0); PLATELET COUNT, AUTOMATED 232 10^3/uL (150-450); RED BLOOD COUNT 3.71 10^6/uL (4.00-5.40); WHITE BLOOD COUNT 8.1 10^3/uL (4.0-10.0)
[2018-09-20 09:50] LABS: ALBUMIN 3.4 GM/DL (3.2-5.2); ALT/SGPT 15 U/L (12-78); BILIRUBIN,TOTAL 0.5 MG/DL (0.2-1.0); BLOOD UREA NITROGEN 37 MG/DL (7-18); CALCIUM LEVEL 9.3 MG/DL (8.8-10.2); CARBON DIOXIDE LEVEL 32 MEQ/L (21-32); CHLORIDE LEVEL 101 MEQ/L (98-107); GLOMERULAR FILTRATION RATE > 60.0 (>32); GLUCOSE, FASTING 142 MG/DL (70-100); SODIUM LEVEL 138 MEQ/L (136-145)
[2018-09-20 12:33] LABS: HEMOGLOBIN A1c 7.2 %
== END ==
PROVIDERS: ATTEND Family Medicine
DX: E11.621 Type 2 diabetes mellitus with foot ulcer (principal); I50.9 Heart failure, unspecified

== ENCOUNTER → 2018-10-12 | Outpatient (REF) | payer MEDICARE, MEDICAID ==
[2018-10-12 10:47] LABS: BASO % 0.2 % (0.0-1.0); EOS # 0.1 10^3/uL (0.0-0.50); EOS % 0.4 % (0.0-3.0); HEMATOCRIT 33.6 % (36.0-47.0); LYMPH # 1.3 10^3/uL (1.5-4.5); LYMPH % 9.5 % (24.0-44.0); MEAN CORPUSCULAR HEMOGLOBIN 31.8 pg (27.0-33.0); MEAN CORPUSCULAR HGB CONC 32.7 g/dl (32.0-36.5); MEAN CORPUSCULAR VOLUME 97.1 fl (80.0-96.0); MONO % 7.4 % (0.0-5.0); NEUTROPHILS # 11.2 10^3/uL (1.8-7.7); PLATELET COUNT, AUTOMATED 228 10^3/uL (150-450); RED BLOOD COUNT 3.46 10^6/uL (4.00-5.40); WHITE BLOOD COUNT 13.7 10^3/uL (4.0-10.0)
[2018-10-12 11:21] LABS: ALBUMIN 3.2 GM/DL (3.2-5.2); BILIRUBIN,TOTAL 0.6 MG/DL (0.2-1.0); CALCIUM LEVEL 8.4 MG/DL (8.8-10.2); CREATININE FOR GFR 1.16 MG/DL (0.55-1.30); GLOMERULAR FILTRATION RATE 47.5 (>32); TOTAL PROTEIN 6.6 GM/DL (6.4-8.2)
== END ==
PROVIDERS: ATTEND Family Medicine
DX: R26.81 Unsteadiness on feet (principal)

== ENCOUNTER → 2018-10-13 | Outpatient (REF) | payer MEDICARE, MEDICAID ==
--- NOTE | 2018-10-13 14:56 | REP ---
Chest x-ray: Single view. History: Abnormal breath sounds. Comparison study: September 08, 2017. Findings: Advanced arthropathy is seen in the shoulders. Mild cardiomegaly is observed unchanged. The aorta is tortuous. No infiltrate is seen in the lung gonzales. Pulmonary vasculature is not increased. No pleural effusion noted. Impression: Mild cardiomegaly. Otherwise no acute disease. Electronically Signed by Masoud Burgos MD 10/13/2018 02:48 P
== END ==
PROVIDERS: ATTEND Family Medicine
DX: I51.7 Cardiomegaly (principal); R09.89 Other specified symptoms and signs involving the circulatory and respiratory systems

== ENCOUNTER → 2018-10-14 | Outpatient (REF) | payer MEDICARE, MEDICAID ==
[2018-10-14 07:37] LABS: BLOOD UREA NITROGEN 37 MG/DL (7-18); CALCIUM LEVEL 8.5 MG/DL (8.8-10.2); CARBON DIOXIDE LEVEL 30 MEQ/L (21-32); CHLORIDE LEVEL 101 MEQ/L (98-107); CREATININE FOR GFR 0.83 MG/DL (0.55-1.30); GLOMERULAR FILTRATION RATE > 60.0 (>32); GLUCOSE, FASTING 134 MG/DL (70-100); POTASSIUM SERUM 4.1 MEQ/L (3.5-5.1); SODIUM LEVEL 137 MEQ/L (136-145)
[2018-10-14 07:40] LABS: HEMATOCRIT 29.4 % (36.0-47.0); HEMOGLOBIN 9.7 g/dl (12.0-15.5); MEAN CORPUSCULAR HEMOGLOBIN 31.5 pg (27.0-33.0); MEAN CORPUSCULAR VOLUME 95.5 fl (80.0-96.0); PLATELET COUNT, AUTOMATED 214 10^3/uL (150-450); RED BLOOD COUNT 3.08 10^6/uL (4.00-5.40); WHITE BLOOD COUNT 9.4 10^3/uL (4.0-10.0)
[2018-10-14 08:32] LABS: ERYTHROCYTE SEDIMENTATION RATE 108 mm/hr (0-30)
== END ==
PROVIDERS: ATTEND Family Medicine
DX: I51.9 Heart disease, unspecified (principal); R50.9 Fever, unspecified

== ENCOUNTER → 2018-10-17 | Outpatient (REF) | payer MEDICARE, MEDICAID ==
[2018-10-17 10:13] LABS: HEMATOCRIT 33.5 % (36.0-47.0); HEMOGLOBIN 10.7 g/dl (12.0-15.5); MEAN CORPUSCULAR HEMOGLOBIN 31.8 pg (27.0-33.0); MEAN CORPUSCULAR HGB CONC 31.9 g/dl (32.0-36.5); MEAN CORPUSCULAR VOLUME 99.4 fl (80.0-96.0); PLATELET COUNT, AUTOMATED 289 10^3/uL (150-450); RED BLOOD COUNT 3.37 10^6/uL (4.00-5.40); WHITE BLOOD COUNT 9.1 10^3/uL (4.0-10.0)
[2018-10-17 10:40] LABS: ALBUMIN 2.8 GM/DL (3.2-5.2); ALT/SGPT 14 U/L (12-78); BILIRUBIN,TOTAL 0.3 MG/DL (0.2-1.0); BLOOD UREA NITROGEN 33 MG/DL (7-18); CALCIUM LEVEL 8.6 MG/DL (8.8-10.2); CARBON DIOXIDE LEVEL 31 MEQ/L (21-32); CHLORIDE LEVEL 105 MEQ/L (98-107); CREATININE FOR GFR 0.79 MG/DL (0.55-1.30); GLOMERULAR FILTRATION RATE > 60.0 (>32); GLUCOSE, FASTING 151 MG/DL (70-100); POTASSIUM SERUM 4.8 MEQ/L (3.5-5.1); SODIUM LEVEL 141 MEQ/L (136-145); TOTAL PROTEIN 6.7 GM/DL (6.4-8.2)
[2018-10-17 11:40] LABS: ERYTHROCYTE SEDIMENTATION RATE 127 mm/hr (0-30)
== END ==
PROVIDERS: ATTEND Family Medicine
DX: R50.9 Fever, unspecified (principal)

== ENCOUNTER → 2018-10-18 | Outpatient (REF) | payer MEDICARE, MEDICAID ==
[2018-10-20 11:16] LABS: ALBUMIN 3.12 GM/DL (3.29-5.55); ALBUMIN % 44.5 % (55.8-66.1); ALPHA-1-GLOBULIN % 7.6 % (2.9-4.9); ALPHA-2-GLOBULINS % 16.2 % (7.1-11.8); BETA-1-GLOBULINS % 7.3 % (4.7-7.2); BETA-2-GLOBULINS % 8.9 % (3.2-6.5); GAMMA GLOBULIN % 15.5 % (11.1-18.8)
[2018-10-20 11:17] LABS: ALPHA-1-GLOBULINS 0.53 GM/DL (0.17-0.41); ALPHA-2-GLOBULINS 1.13 GM/DL (0.42-0.99); BETA-1-GLOBULINS 0.51 GM/DL (0.28-0.60); BETA-2-GLOBULINS 0.62 GM/DL (0.19-0.55); GAMMA GLOBULINS 1.09 GM/DL (0.65-1.58)
== END ==
PROVIDERS: ATTEND Family Medicine
DX: I50.9 Heart failure, unspecified (principal)

== ENCOUNTER → 2018-10-20 | Outpatient (CLI) | payer MEDICARE, MEDICAID ==
--- NOTE | 2018-10-20 18:40 | ECHO ---
DATE OF PROCEDURE: 10/20/2018 REFERRING PHYSICIAN: Dr. Hua INDICATION: Endocarditis. Height 185 cm, weight 96 kg. DIMENSIONS: IVS: 1.5 LV: 4.6 LVPW: 1.5 LA: 4.8 Aorta: 3.8 Ascending aorta: 4.5 IVC: 2.1 Mitral E wave velocity: 85 A wave: 92 E prime septal: 4.7 E prime lateral: 9.8 FINDINGS: The study is of acceptable technical quality. The patient is in sinus rhythm. Left ventricle is of normal size and systolic function with estimated left ventricular ejection fraction (LVEF) 70-75%. Moderate left ventricle hypertrophy is noted. Right ventricle does not appear grossly enlarged. There is moderate left atrial enlargement. Right atrium appears normal. Aortic valve is heavily calcified. It was not well seen and I cannot comment on details of its structure, but it does appear tricuspid. On some views, I cannot completely rule out presence of small vegetation, even though it seems unlikely. There are also degenerative abnormalities of mitral valve with mild mitral annular calcifications. Leaflet mobility is preserved. Tricuspid valve appears normal. Pulmonic valve was not well seen. No pericardial effusion is noted. Inferior vena cava is mildly dilated. Aortic root appears normal. Ascending aorta is dilated (4.5 cm). Aortic arch appears normal. Abdominal aorta was not seen. Doppler interrogation of aortic valve reveals mild to moderate insufficiency and probably moderate aortic stenosis. Peak gradient was 49 and mean gradient 30 mmHg. Calculated aortic valve area was 1.3 centimeters squared. There is mild mitral insufficiency and mild tricuspid insufficiency. Calculated pulmonary artery pressure is in 30s, but the quality of TR jet was not excellent and consequently this should be considered with some skepticism. Pulmonic valve is functionally competent. Mitral inflow pattern and tissue Doppler imaging of mitral annulus revealed grade 1 diastolic dysfunction. CONCLUSIONS: 1. Study is of acceptable technical quality. 2. Normal left ventricular (LV) size with moderate left ventricular hypertrophy (LVH), preserved LV systolic function and grade 1 diastolic dysfunction. 3. Degenerative abnormalities of aortic valve resulting in mild to moderate insufficiency and moderate stenosis (mean gradient 30 mmHg). 4. Mild mitral insufficiency. 5. Likely elevated central venous pressure and at least mild pulmonary hypertension. 6. Cannot completely rule out the presence of vegetations on mitral valve. COMMENT: Subacute bacterial endocarditis (SBE) prophylaxis is not recommended. If very high clinical suspicion for bacterial endocarditis and the diagnosis is in question, then transesophageal echocardiogram will provide better resolution. Study is overall consistent with hypertensive heart disease. MTDD
== END ==
LOC: M CARPUL 09:25
PROVIDERS: ATTEND Family Medicine
DX: I08.0 Rheumatic disorders of both mitral and aortic valves (principal); I10 Essential (primary) hypertension

== ENCOUNTER → 2018-12-21 | Outpatient (REF) | payer MEDICARE, MEDICAID ==
[~2018-12-21] MED LIST changes: +ASPI-524 PO; -ASPI1TAB20 PO
[2018-12-21 11:04] LABS: HEMOGLOBIN A1c 8.1 %
== END ==
PROVIDERS: ATTEND Family Medicine
DX: I25.10 Atherosclerotic heart disease of native coronary artery without angina pectoris (principal); E11.9 Type 2 diabetes mellitus without complications

== ENCOUNTER → 2018-12-23 | Outpatient (CLI) | payer MEDICARE, MEDICAID ==
--- NOTE | 2018-12-23 13:32 | REP ---
CT brain without contrast: History: Headache. Recent fall. Comparison study: September 08, 2017. Findings: Digital preliminary business advisor radiograph demonstrates that the patient is edentulous. The bony calvarium is intact. There is fairly heavy vascular calcification in the distal vertebral and carotid circulation. No scalp swelling is appreciated. There is moderate diffuse cerebral atrophy. There is no evidence of intracranial hemorrhage. No extra-axial fluid collection is seen. No infarct, mass, or midline shift is observed. Impression: Moderate diffuse atrophy. Vascular calcification. No acute intracranial abnormality. Electronically Signed by Masoud Burgos MD 12/23/2018 01:24 P
== END ==
LOC: M RAD 12:51
PROVIDERS: ATTEND Nurse Practitioner Adult Health
DX: G31.89 Other specified degenerative diseases of nervous system (principal)

== ENCOUNTER → 2018-12-28 | Outpatient (REF) | payer MEDICARE, MEDICAID | PROVIDERS: ATTEND Family Medicine | DX: G44.221 Chronic tension-type headache, intractable (principal) ==

== ENCOUNTER → 2019-01-05 | Outpatient (REF) | payer MEDICARE, MEDICAID ==
[2019-01-05 11:07] LABS: BASO % 0.3 % (0.0-1.0); EOS # 0.1 10^3/uL (0.0-0.50); EOS % 1.3 % (0.0-3.0); HEMATOCRIT 37.1 % (36.0-47.0); HEMOGLOBIN 11.7 g/dl (12.0-15.5); LYMPH # 1.6 10^3/uL (1.5-4.5); LYMPH % 14.1 % (24.0-44.0); MEAN CORPUSCULAR HEMOGLOBIN 30.6 pg (27.0-33.0); MEAN CORPUSCULAR HGB CONC 31.5 g/dl (32.0-36.5); MEAN CORPUSCULAR VOLUME 97.1 fl (80.0-96.0); MONO # 0.8 10^3/uL (0.0-0.8); MONO % 7.2 % (0.0-5.0); NEUTROPHILS # 8.6 10^3/uL (1.8-7.7); NEUTROPHILS % 76.8 % (36.0-66.0); PLATELET COUNT, AUTOMATED 335 10^3/uL (150-450); RED BLOOD COUNT 3.82 10^6/uL (4.00-5.40); WHITE BLOOD COUNT 11.2 10^3/uL (4.0-10.0)
[2019-01-05 11:31] LABS: ALBUMIN 3.3 GM/DL (3.2-5.2); BILIRUBIN,TOTAL 0.3 MG/DL (0.2-1.0); C REACTIVE PROTEIN QUANTITATIV 0.77 MG/DL (0.00-0.30); CALCIUM LEVEL 8.7 MG/DL (8.8-10.2); CREATININE FOR GFR 1.09 MG/DL (0.55-1.30); POTASSIUM SERUM 4.2 MEQ/L (3.5-5.1); TOTAL PROTEIN 7.7 GM/DL (6.4-8.2)
[2019-01-05 11:33] LABS: ERYTHROCYTE SEDIMENTATION RATE 60 mm/hr (0-30)
== END ==
PROVIDERS: ATTEND Family Medicine
DX: R51 Headache (principal)

== ENCOUNTER → 2019-01-06 | Outpatient (CLI) | payer MEDICARE, MEDICAID ==
--- NOTE | 2019-01-06 12:20 | REP ---
MRI BRAIN WITHOUT AND WITH IV GADOLINIUM: HISTORY: Intractable headache. Neck pain. Comparison head CT study December 23, 2018. TECHNIQUE: Axial and sagittal imaging planes are utilized for T1 and T2-weighted scans. Sequences include spin-echo, fast spin echo, FLAIR, and diffusion weighted sequences. GADOLINIUM ENHANCEMENT DOSE: 9 mL of intravenous ProHance, half-dose protocol. MRI FINDINGS: There is diffuse swelling about the articulation between the dens and the anterior arch of C1 as well as posteriorly along the transverse ligament behind the dens. There is decreased signal intensity within the dens. These findings are better seen and will be described in more detail on the MRI study of the cervical spine obtained today. The upper cervical cord is normal in course and signal intensity. No bony calvarial lesion is seen. There is no MR evidence of significant paranasal sinus disease. No intraorbital abnormality is seen. The patient appears to be status post cataract surgery. Diffusion weighted scans show no evidence to suggest acute ischemia. There is no evidence of intracranial mass or hemorrhage. No infarct is seen. There is generalized volume loss as seen on the recent CT study. Postcontrast imaging shows enhancement in normal vessels. No abnormal intracranial contrast enhancement is appreciated. IMPRESSION: Generalized volume loss. No acute intracranial abnormality. Swelling at the C1-2 level, see MRI cervical spine report. Electronically Signed by Masoud Burgos MD 01/06/2019 03:43 P
--- NOTE | 2019-01-06 12:50 | REP ---
MRI CERVICAL SPINE WITHOUT AND WITH IV CONTRAST: HISTORY: Intractable headache with neck pain. No comparison MRI study. There is a comparison cervical spine CT study from September 15, 2007. There is a more recent comparison CT study of the cervical spine but I am not able to review these images. TECHNIQUE: Sagittal and axial T1- and T2-weighted scans are acquired in the usual fashion with and without fat saturation. Sequences include spin echo, turbo spin echo, and STIR imaging sequences. Gadolinium enhancement dose is 9 mL of intravenous ProHance, half-dose protocol. CT FINDINGS: There is abnormal signal intensity in the dense characterized by low T1 and high T2 signal intensity. There is contrast enhancement in this distribution. In addition, there is some soft tissue edema and enhancement surrounding the dens and the anterior arch of C1. There is soft tissue enhancement and edema posteriorly, which compresses the ventral aspect of the thecal sac at the level of C1-2. The AP dimension of the thecal sac at the level of the dens is 12 mm. The cord is not compressed although there may be some straightening of the cord here. There is no intramedullary contrast enhancement. The abnormal signal intensity pattern and contrast enhancement extends to the left apparently involving the left C1-2 facet joint. The right C1-2 facet joint does not appear to be involved. The axial sequences do not include this area has as they are routinely programmed from C2-3 disc level caudal. There is straightening of the normal cervical lordosis. Axial and sagittal images taken at the C2-3 disc level demonstrate right posterior disc bulging and spurring. Some mild right-sided uncovertebral spurring is seen. At C3-4, there is diffuse disc bulging. Bilateral uncovertebral spurring is noted, right greater than left. There is right-sided neural foraminal narrowing. Some ligamentum flavum hypertrophy is present bilaterally. There is a degenerative 2 mm anterolisthesis at C3-4. There is mild central canal stenosis. No discernible cord compression. Midline AP dimension of the thecal sac at C3-4 is 9 mm. At C4-5, there is posterior osteophytic ridging and disc bulging diffusely. Bilateral uncovertebral spurring is present producing bilateral foraminal narrowing. Canal size is borderline. At C5-6, there is diffuse disc bulging and posterior osteophytic ridging. Mild bilateral uncovertebral spurring is seen. Central canal stenosis. Midline AP dimension of the thecal sac at C5-6 is 8.6 mm. No abnormal cord signal intensity is seen. At C6-C7, there is posterior disc bulging and osteophytic ridging diffusely. Bilateral uncovertebral spurring is noted. Borderline canal size. Bilateral foraminal narrowing. At C7-T1, there is minimal disc bulging. Central disc bulge or protrusion is noted incidentally at T1-T2 in the upper thoracic spine without cord compression. IMPRESSION: 1. Inflammatory appearing process at the C1-2 articulation most compatible with rheumatoid arthritis. There is swelling effacing the ventral aspect of the subarachnoid space at the craniocervical junction associated with this. Abnormal signal intensity is seen in the dens and on either side of the left C1-2 facet. Enhancement is seen here along in the adjacent swollen soft tissues. 2. Advanced degenerative spondylosis with multilevel disc bulging and bilateral uncovertebral spurring and neural foraminal narrowing and mild central canal stenosis as above. Electronically Signed by Masoud Burgos MD 01/06/2019 03:46 P
== END ==
LOC: M PLARAD 08:03
PROVIDERS: ATTEND Nurse Practitioner Adult Health
DX: M47.812 Spondylosis without myelopathy or radiculopathy, cervical region (principal); M50.21 Other cervical disc displacement, high cervical region; M50.121 Cervical disc disorder at C4-C5 level with radiculopathy; M50.122 Cervical disc disorder at C5-C6 level with radiculopathy; M50.123 Cervical disc disorder at C6-C7 level with radiculopathy; M50.23 Other cervical disc displacement, cervicothoracic region; M25.78 Osteophyte, vertebrae

== ENCOUNTER → 2019-01-25 | Outpatient (REF) | payer MEDICARE, MEDICAID ==
[2019-01-25 08:27] LABS: BASO % 0.6 % (0.0-1.0); EOS # 0.2 10^3/uL (0.0-0.50); EOS % 3.1 % (0.0-3.0); HEMATOCRIT 35.2 % (36.0-47.0); HEMOGLOBIN 11.5 g/dl (12.0-15.5); LYMPH # 1.6 10^3/uL (1.5-4.5); LYMPH % 23.9 % (24.0-44.0); MEAN CORPUSCULAR HEMOGLOBIN 32.2 pg (27.0-33.0); MEAN CORPUSCULAR HGB CONC 32.7 g/dl (32.0-36.5); MEAN CORPUSCULAR VOLUME 98.6 fl (80.0-96.0); MONO # 0.6 10^3/uL (0.0-0.8); MONO % 9.3 % (0.0-5.0); NEUTROPHILS # 4.3 10^3/uL (1.8-7.7); NEUTROPHILS % 62.8 % (36.0-66.0); PLATELET COUNT, AUTOMATED 230 10^3/uL (150-450); RED BLOOD COUNT 3.57 10^6/uL (4.00-5.40); WHITE BLOOD COUNT 6.8 10^3/uL (4.0-10.0)
[2019-01-25 08:52] LABS: ALBUMIN 3.1 GM/DL (3.2-5.2); ALT/SGPT 14 U/L (12-78); BILIRUBIN,TOTAL 0.3 MG/DL (0.2-1.0); BLOOD UREA NITROGEN 36 MG/DL (7-18); CALCIUM LEVEL 9.1 MG/DL (8.8-10.2); CARBON DIOXIDE LEVEL 29 MEQ/L (21-32); CHLORIDE LEVEL 102 MEQ/L (98-107); CREATININE FOR GFR 0.87 MG/DL (0.55-1.30); GLOMERULAR FILTRATION RATE > 60.0 (>32); GLUCOSE, FASTING 146 MG/DL (70-100); POTASSIUM SERUM 4.8 MEQ/L (3.5-5.1); SODIUM LEVEL 139 MEQ/L (136-145); TOTAL PROTEIN 6.8 GM/DL (6.4-8.2)
== END ==
PROVIDERS: ATTEND Family Medicine
DX: E11.9 Type 2 diabetes mellitus without complications (principal)

== ENCOUNTER → 2019-03-21 | Outpatient (REF) | payer MEDICARE, MEDICAID ==
[~2019-03-21] MED LIST changes: -ASPI-524 PO; +ASPI325T57 PO
[2019-03-21 09:03] LABS: BASO % 0.5 % (0.0-1.0); EOS # 0.2 10^3/uL (0.0-0.5); EOS % 3.9 % (0.0-3.0); HEMATOCRIT 35.4 % (36.0-47.0); HEMOGLOBIN 11.4 g/dl (12.0-15.5); LYMPH # 1.7 10^3/uL (1.5-5.0); LYMPH % 28.9 % (24.0-44.0); MEAN CORPUSCULAR HEMOGLOBIN 32.2 pg (27.0-33.0); MEAN CORPUSCULAR HGB CONC 32.2 g/dl (32.0-36.5); MONO # 0.5 10^3/uL (0.0-0.8); MONO % 8.6 % (0.0-5.0); NEUTROPHILS # 3.4 10^3/uL (1.5-8.5); NEUTROPHILS % 57.8 % (36.0-66.0); PLATELET COUNT, AUTOMATED 225 10^3/uL (150-450); RED BLOOD COUNT 3.54 10^6/uL (4.00-5.40); WHITE BLOOD COUNT 5.9 10^3/uL (4.0-10.0)
[2019-03-21 09:17] LABS: HEMOGLOBIN A1c 8.2 %
[2019-03-21 09:33] LABS: ALBUMIN 3.1 GM/DL (3.2-5.2); ALT/SGPT 12 U/L (12-78); BILIRUBIN,TOTAL 0.3 MG/DL (0.2-1.0); BLOOD UREA NITROGEN 32 MG/DL (7-18); CALCIUM LEVEL 9.3 MG/DL (8.8-10.2); CARBON DIOXIDE LEVEL 31 MEQ/L (21-32); CHLORIDE LEVEL 100 MEQ/L (98-107); CHOLESTEROL LEVEL 174 MG/DL (<200); CHOLESTEROL RISK RATIO 2.597 (<5); CREATININE FOR GFR 0.93 MG/DL (0.55-1.30); GLOMERULAR FILTRATION RATE > 60.0 (>32); GLUCOSE, FASTING 182 MG/DL (70-100); HDL CHOLESTEROL 67 MG/DL (>40); LDL CHOLESTEROL 83 MG/DL (<100); NON-HDL-C 107 MG/DL; POTASSIUM SERUM 4.3 MEQ/L (3.5-5.1); SODIUM LEVEL 139 MEQ/L (136-145); TOTAL PROTEIN 7.1 GM/DL (6.4-8.2); TRIGLYCERIDES LEVEL 118 MG/DL (<150)
== END ==
PROVIDERS: ATTEND Family Medicine
DX: I25.10 Atherosclerotic heart disease of native coronary artery without angina pectoris (principal); Z79.899 Other long term (current) drug therapy

== ENCOUNTER → 2019-06-30 | Outpatient (REF) | payer MEDICARE, MEDICAID ==
[~2019-06-30] MED LIST changes: +SENN-53 PO; -SENN1TAB40 PO
[2019-06-30 10:43] LABS: BASO % 0.5 % (0.0-1.0); EOS # 0.3 10^3/uL (0.0-0.5); EOS % 3.9 % (0.0-3.0); HEMATOCRIT 35.3 % (36.0-47.0); HEMOGLOBIN 10.8 g/dl (12.0-15.5); LYMPH # 1.3 10^3/uL (1.5-5.0); LYMPH % 17.5 % (24.0-44.0); MEAN CORPUSCULAR HEMOGLOBIN 30.9 pg (27.0-33.0); MEAN CORPUSCULAR HGB CONC 30.6 g/dl (32.0-36.5); MEAN CORPUSCULAR VOLUME 101.1 fl (80.0-96.0); MONO # 0.6 10^3/uL (0.0-0.8); MONO % 7.4 % (0.0-5.0); NEUTROPHILS # 5.3 10^3/uL (1.5-8.5); NEUTROPHILS % 70.6 % (36.0-66.0); PLATELET COUNT, AUTOMATED 240 10^3/uL (150-450); RED BLOOD COUNT 3.49 10^6/uL (4.00-5.40); WHITE BLOOD COUNT 7.5 10^3/uL (4.0-10.0)
[2019-06-30 11:12] LABS: ALBUMIN 3.1 GM/DL (3.2-5.2); BILIRUBIN,TOTAL 0.3 MG/DL (0.2-1.0); CALCIUM LEVEL 8.9 MG/DL (8.8-10.2); CREATININE FOR GFR 0.97 MG/DL (0.55-1.30); GLOMERULAR FILTRATION RATE 58.4 (>32); POTASSIUM SERUM 4.7 MEQ/L (3.5-5.1); TOTAL PROTEIN 7.1 GM/DL (6.4-8.2)
[2019-06-30 11:19] LABS: HEMOGLOBIN A1c 6.1 %
== END ==
PROVIDERS: ATTEND Family Medicine
DX: I25.10 Atherosclerotic heart disease of native coronary artery without angina pectoris (principal); I48.20 Chronic atrial fibrillation, unspecified; E11.9 Type 2 diabetes mellitus without complications

== ENCOUNTER → 2019-07-27 | Outpatient (REF) | payer MEDICARE, MEDICAID ==
[2019-07-27 10:57] LABS: CALCIUM LEVEL 8.7 MG/DL (8.8-10.2); CREATININE FOR GFR 1.04 MG/DL (0.55-1.30); GLOMERULAR FILTRATION RATE 53.9 (>32); POTASSIUM SERUM 4.5 MEQ/L (3.5-5.1)
== END ==
PROVIDERS: ATTEND Family Medicine
DX: I50.9 Heart failure, unspecified (principal)

== ENCOUNTER → 2019-09-25 | Outpatient (REF) | payer MEDICARE, MEDICAID ==
--- NOTE | 2019-09-25 23:14 | REP ---
LEFT ANKLE, THREE VIEWS: Three views of the left ankle performed. There is a comminuted fracture of the distal fibula. There is widening of the medial ankle mortise compatible with ligamentous disruption. The tibia itself demonstrates no definite fracture. There is mild calcaneal spurring both posteriorly and inferiorly. Diffuse vascular calcifications are present. IMPRESSION: Comminuted fracture distal fibula. Widening of the medial ankle mortise suggests ligamentous disruption. Electronically Signed by Turner Salazar MD 09/26/2019 04:53 P
--- NOTE | 2019-09-25 23:16 | REP ---
LEFT FOOT, TWO VIEWS: Two views of the left foot performed. No fracture or dislocation is seen of the osseous structures of the foot. There is mild calcaneal spurring. There is dorsal navicular spurring. There is mild narrowing at the talonavicular joint with subchondral sclerosis. Diffuse vascular calcifications are present. IMPRESSION: Arthritic changes with no evidence of fracture or dislocation of the osseous structures of the left foot. Electronically Signed by Turner Salazar MD 09/26/2019 04:53 P
== END ==
PROVIDERS: ATTEND Nurse Practitioner Adult Health
DX: M25.572 Pain in left ankle and joints of left foot (principal); S82.452A Displaced comminuted fracture of shaft of left fibula, initial encounter for closed fracture; W19.XXXA Unspecified fall, initial encounter; Y92.129 Unspecified place in nursing home as the place of occurrence of the external cause

== ENCOUNTER → 2019-09-25 | Outpatient (CLI) | payer MEDICARE, MEDICAID | LOC: M RAD 14:03 | PROVIDERS: ATTEND Family Medicine | DX: M25.571 Pain in right ankle and joints of right foot (principal) ==

== ENCOUNTER → 2019-09-27 | Outpatient (REF) | payer MEDICARE, MEDICAID ==
[2019-09-27 11:15] LABS: BASO % 0.2 % (0.0-1.0); EOS # 0.2 10^3/uL (0.0-0.5); EOS % 1.7 % (0.0-3.0); HEMATOCRIT 26.3 % (36.0-47.0); HEMOGLOBIN 8.3 g/dl (12.0-15.5); LYMPH # 1.3 10^3/uL (1.5-5.0); LYMPH % 11.9 % (24.0-44.0); MEAN CORPUSCULAR HEMOGLOBIN 30.9 pg (27.0-33.0); MEAN CORPUSCULAR HGB CONC 31.6 g/dl (32.0-36.5); MEAN CORPUSCULAR VOLUME 97.8 fl (80.0-96.0); MONO # 1.2 10^3/uL (0.0-0.8); MONO % 11.7 % (0.0-5.0); NEUTROPHILS # 7.9 10^3/uL (1.5-8.5); PLATELET COUNT, AUTOMATED 203 10^3/uL (150-450); RED BLOOD COUNT 2.69 10^6/uL (4.00-5.40); WHITE BLOOD COUNT 10.6 10^3/uL (4.0-10.0)
[2019-09-27 11:17] LABS: C REACTIVE PROTEIN QUANTITATIV 15.5 MG/DL (0.00-0.30); THYROID STIMULATING HORMONE 1.37 uIU/ML (0.358-3.740)
[2019-09-27 11:17] LABS: ALBUMIN 2.3 GM/DL (3.2-5.2); BILIRUBIN,TOTAL 0.8 MG/DL (0.2-1.0); CALCIUM LEVEL 8.4 MG/DL (8.8-10.2); CREATININE FOR GFR 1.48 MG/DL (0.55-1.30); GLOMERULAR FILTRATION RATE 35.8 (>32); POTASSIUM SERUM 4.3 MEQ/L (3.5-5.1)
== END ==
PROVIDERS: ATTEND Family Medicine
DX: E11.9 Type 2 diabetes mellitus without complications (principal); I25.10 Atherosclerotic heart disease of native coronary artery without angina pectoris; Z79.899 Other long term (current) drug therapy; I50.9 Heart failure, unspecified

== ENCOUNTER → 2019-09-27 | Outpatient (CLI) | payer MEDICARE, MEDICAID ==
[~2019-09-27] MED LIST changes: +ISOVUE-370 76% 100ML VIAL As Ordered ONE
--- NOTE | 2019-09-27 12:46 | REP ---
REASON FOR EXAM: Dyspnea. No priors for comparison. Standard noncontrast enhanced chest CT of 09/15/2007 has been reviewed. That is the only chest CT for comparison. CONTRAST: 100 mL Isovue 370. There is mediastinal and right hilar adenopathy which has developed since the last exam. There is a right pleural effusion. There is suboptimal opacification of the pulmonary arterial vasculature to such a degree small pulmonary emboli cannot be ruled out. The imaged upper abdomen shows a partially imaged large left renal cyst. The imaged osseous structures show age-related chronic changes. Evaluation of the lung gonzales show significant respiratory motion artifact throughout the exam. Asymmetric densities are seen throughout the lung gonzales with basal predominance. Due to the right pleural effusion a significant opacity could be obscured. There is evidence of atelectasis involving the right middle lobe. There is four-chamber cardiac enlargement. IMPRESSION: 1. Small pulmonary emboli cannot be ruled out as described above. 2. Exam limitations as described above. 3. Small right pleural effusion and evidence of complete right middle lobe atelectasis. This is likely secondary to postobstructive right middle lobe bronchus. 4. Rather marked mediastinal and particularly right hilar adenopathy likely responsible for the post obstructive right middle lobe atelectasis. 5. Other findings as described above. Electronically Signed by Ángel Barnett DO 09/27/2019 03:48 P
== END ==
LOC: M RAD 11:11
PROVIDERS: ATTEND Nurse Practitioner Adult Health
DX: R06.02 Shortness of breath (principal); E11.9 Type 2 diabetes mellitus without complications; I25.10 Atherosclerotic heart disease of native coronary artery without angina pectoris; Z79.899 Other long term (current) drug therapy; I50.9 Heart failure, unspecified
CPT/HCPCS: 36415; 71275; 80053; 83036; 83880; 84443; 85025; 85379; 85652; 86140; Q9967

== ENCOUNTER → 2019-09-29 | Outpatient (REF) | payer MEDICARE, MEDICAID ==
[~2019-09-29] MED LIST changes: -ISOVUE-370 76% 100ML VIAL As Ordered ONE
[2019-09-29 10:25] LABS: HEMATOCRIT 25.6 % (36.0-47.0); HEMOGLOBIN 8.2 g/dl (12.0-15.5); MEAN CORPUSCULAR HEMOGLOBIN 31.2 pg (27.0-33.0); MEAN CORPUSCULAR VOLUME 97.3 fl (80.0-96.0); PLATELET COUNT, AUTOMATED 232 10^3/uL (150-450); RED BLOOD COUNT 2.63 10^6/uL (4.00-5.40); WHITE BLOOD COUNT 9.2 10^3/uL (4.0-10.0)
== END ==
PROVIDERS: ATTEND Family Medicine
DX: D64.9 Anemia, unspecified (principal)

== ENCOUNTER → 2019-09-30 | Outpatient (REF) | payer MEDICARE, MEDICAID | PROVIDERS: ATTEND Family Medicine | DX: R05 Cough (principal) | CPT/HCPCS: 87486; 87581; 87633; 87798; U0002 ==